=== PATIENT | male | born 1955 | race Two or more races ===

== ENCOUNTER 2022-02-19 08:44 | Emergency (ER) | payer MEDICARE, BC ==
[~2022-02-19] VITALS: Ht 188 cm; Wt 86.2 kg
--- NOTE | 2022-02-19 08:55 | NUR ---
[id number] C/O DIZZINESS (ROOM SPINNING) UPON WAKING UP 3 HOURS AGO. PT PLACED ON BED AND GREEN LUMBER GRADER. [id number].
--- NOTE | 2022-02-19 08:55 | NUR ---
PT SEEN BY MD AT BEDSIDE
[2022-02-19] MEDS ORDERED: ONDANSETRON HCL/PF 4 MG/2 ML VIAL ONE ×2 (08:58→10:00)
[2022-02-19] MEDS ORDERED: IV NS 0.9% 1,000 ML BAG IV ONE (09:00)
[2022-02-19] MEDS ORDERED: ONDANSETRON HCL/PF - ER 4 MG/2 ML VIAL IV ONE ×2 (09:00→10:00)
--- NOTE | 2022-02-19 09:00 | NUR ---
ESTABLISHED IV LEFT FOREARM 18G, BLOOD DRAWN AND SENT TO LAB. ZOFRAN GIVEN ORDERED, IV FLUIDS NS STARTED.
--- NOTE | 2022-02-19 09:10 | NUR ---
PT TAKEN TO CT VIA [facility].
[2022-02-19 09:17] LABS: BASOPHILS % (AUTO) 0.5 % (0.0-2.0); HEMATOCRIT 46 % (39-51); LYMPHOCYTES # (AUTO) 1.7 K/uL (0.8-4.8); MEAN CORPUSCULAR HGB CONC 33 g/dl (31.0-36.0); MEAN CORPUSCULAR VOLUME 86 fL (80-96); MONOCYTES # (AUTO) 0.4 K/uL (0.1-1.30); MONOCYTES % (AUTO) 5.2 % (2.0-12.0); NEUTROPHILS # (AUTO) 4.7 K/uL (1.8-8.9); NEUTROPHILS % (AUTO) 66.3 % (43.0-81.0); PLATELET COUNT (AUTO) 156 K/uL (150-450); RED BLOOD CELL COUNT(AUTO) 5.31 MIL/uL (4.5-6.0); WHITE BLOOD COUNT (AUTO) 7.1 K/uL (4.3-11.0)
--- NOTE | 2022-02-19 09:23 | NUR ---
PT BACK FROM CT. DR. CLEMENS AT BEDSIDE.
[2022-02-19 09:34] LABS: CALCIUM, SERUM 9.2 mg/dL (8.5-10.1); CARBON DIOXIDE 27 mmol/L (21-32); CHLORIDE 101 mmol/L (98-107); CREATININE 0.9 mg/dL (0.6-1.3); GLUCOSE 168 mg/dL (74-106); POTASSIUM 4.1 mmol/L (3.5-5.1); SODIUM SERUM 137 mmol/L (136-145); UREA NITROGEN, BLOOD 21 mg/dL (7-18)
[2022-02-19 09:40] LABS: ALANINE AMINOTRANSFERASE 20 U/L (12-78); ALBUMIN 3.8 g/dL (3.4-5.0); ALKALINE PHOSPHATASE 60 U/L (46-116); ASPARTATE AMINOTRANSFERASE 14 U/L (15-37); BILIRUBIN,DIRECT 0.1 mg/dL (0.0-0.2); BILIRUBIN,TOTAL 0.7 mg/dL (0.2-1.0); TOTAL PROTEIN, SERUM 7.3 g/dL (6.4-8.2)
--- NOTE | 2022-02-19 10:03 | NUR ---
PT STLL NAUSEATED. MD MADE AWARE. 4MG OF ZOFRAN GIVEN IVP ORDERED.
--- NOTE | 2022-02-19 10:14 | NUR ---
COVID SWAB COLLECTED AND SENT TO LAB
[2022-02-19] MEDS ORDERED: DOXA1TAB2 PO (10:33)
[2022-02-19] MEDS ORDERED: SOTA80TA PO (10:33)
[2022-02-19] MEDS ORDERED: CT SWABBABLE VALVE TRANS SET 1 EA INFUS.SET MC ONE (10:47)
[2022-02-19] MEDS ORDERED: IOHEXOL-350 100 ML VIAL IV ONE (10:47)
--- NOTE | 2022-02-19 10:49 | NUR ---
PT STATES "I FEEL BETTER, NO NAUSEA".
--- NOTE | 2022-02-19 13:30 | NUR ---
VS TAKEN AND RECORDED. PT RESTING W/ EYES CLOSED, ABLE TO BE AWAKENED, NOT IN ACUTE DISTRESS.
--- NOTE | 2022-02-19 13:33 | NUR ---
CALLED [facility] [phone] ILIA RIVERA.
--- NOTE | 2022-02-19 13:48 | NUR ---
dr. malcolm on the phone with dr. null from [facility].
--- NOTE | 2022-02-19 14:13 | NUR ---
CALLED [facility] [phone] FAXING CLINICALS TO [phone]
--- NOTE | 2022-02-19 14:27 | NUR ---
CALLED [facility] [phone] NO BEDS AVAIALBLE PER CO-ORDINATOR CHAVO #[phone].
[2022-02-19] MEDS ORDERED: ASPIRIN 81 MG TAB.CHEW PO ONE (14:30)
[2022-02-19] MEDS ORDERED: ASPIRIN 81 MG TAB.CHEW ONE (14:33)
--- NOTE | 2022-02-19 14:36 | NUR ---
CALLED [place]INA AT [facility] [phone] FAXING CLINICALS TO [phone]
--- NOTE | 2022-02-19 14:37 | NUR ---
ASPIRIN PO GIVEN INDICATED, SHAYLEE WELL
--- NOTE | 2022-02-19 14:44 | NUR ---
CALLED [facility] [phone] ONLY TAKING CAPITATED PTS PER JOLENE
--- NOTE | 2022-02-19 15:06 | NUR ---
[facility] [phone] KATHERINE REQUESTING CLINICALS FAXED TO [phone]
[2022-02-19] MEDS ORDERED: SOTALOL HCL 80 MG TABLET ONE (15:58)
[2022-02-19] MEDS ORDERED: SOTALOL HCL 80 MG TABLET PO ONE (16:00)
[2022-02-19 16:01] VITALS: BP 146/89
--- NOTE | 2022-02-19 16:14 | NUR ---
KATHERINE FROM [facility] CALLED PT GOING TO ROOM [id number] CALL [phone] FOR REPORT. [facility] WILL COLLECT PT IN 45 MINS.
--- NOTE | 2022-02-19 16:34 | NUR ---
REPORT GIVEN TO EMILY AYALA.
--- NOTE | 2022-02-19 17:14 | NUR ---
[facility] AT BEDSIDE TO PICKUP PT, ENDORSEMENT GIVEN.
--- NOTE | 2022-02-19 17:20 | NUR ---
pt picked up by transport via [facility], to and pertinent paperwork given and endorced.
== END 2022-02-19 17:46 | disposition short-term general hospital (02) ==
LOC: ER 08:47
DX: R42 Dizziness and giddiness (principal); I67.1 Cerebral aneurysm, nonruptured; I82.C12 Acute embolism and thrombosis of left internal jugular vein; Z20.822 Contact with and (suspected) exposure to COVID-19; I10 Essential (primary) hypertension
CPT/HCPCS: 99291; 70498; 96374; 71045; 96361; 87426; 93005; 70496; 85025; 80048; 80076; 36415; 84484; 87081; 96376; 70450; J2405 ×2; J7030; Q9967; C9803